=== PATIENT | male | born 1985 ===

== ENCOUNTER 2019-09-24 12:57 | Emergency (ER) | payer OTHER ==
[~2019-09-24] VITALS: Ht 170.2 cm; Wt 74.8 kg
[2019-09-24] MEDS ORDERED: NAPROXEN250 MG (13:03)
[2019-09-24] MEDS ORDERED: BACOFLEN (13:04)
[2019-09-24] MEDS ORDERED: ATIVAN2 MG (13:04)
== END 2019-09-24 18:31 | disposition home or self-care (01) ==
LOC: ER 12:57
DX: T50.994A Poisoning by other drugs, medicaments and biological substances, undetermined, initial encounter (principal); R42 Dizziness and giddiness; Y92.89 Other specified places as the place of occurrence of the external cause